=== PATIENT | female | born 1935 | race Caucasian/White ===

== ENCOUNTER 2017-10-08 16:54 | Inpatient (IN) | payer MEDICARE, MEDICAID ==
[~2017-10-08] VITALS: Ht 160 cm; Wt 59.4 kg
--- NOTE | 2017-10-08 17:07 | NUR ---
DR MILIAN AT BS FOR EVAL.
[2017-10-08] MEDS ORDERED: IV NS 0.9% 1,000 ML BAG IV ONE (17:30)
[2017-10-08] MEDS ORDERED: ONDANSETRON HCL/PF 4 MG/2 ML VIAL ONE (17:30)
[2017-10-08] MEDS ORDERED: ONDANSETRON HCL/PF 4 MG/2 ML VIAL IVP ONE (17:30)
[2017-10-08 17:36] LABS: BASOPHILS # (AUTO) 0.1 /CMM (0.0-0.2); BASOPHILS % (AUTO) 0.8 % (0.0-2.0); EOSINOPHILS % (AUTO) 0.5 % (0.0-6.0); HEMATOCRIT 39 % (33-45); HEMOGLOBIN 12.9 g/dL (11.5-14.8); LYMPHOCYTES # (AUTO) 1.2 /CMM (0.8-4.8); LYMPHOCYTES % (AUTO) 15.5 % (20.0-44.0); MEAN CORPUSCULAR HEMOGLOBIN 29 PG (26.0-33.0); MEAN CORPUSCULAR HGB CONC 33 g/dl (31.0-36.0); MEAN CORPUSCULAR VOLUME 87 fL (82-100); MONOCYTES # (AUTO) 0.4 /CMM (0.1-1.30); MONOCYTES % (AUTO) 5.5 % (2.0-12.0); NEUTROPHILS # (AUTO) 6.4 /CMM (1.8-8.9); NEUTROPHILS % (AUTO) 77.7 % (43.0-81.0); PLATELET COUNT (AUTO) 247 /CMM (150-450); RDW COEFFICIENT OF VARIATION 13.5 (11.5-15.0); RED BLOOD CELL COUNT(AUTO) 4.44 MIL/uL (4.0-5.2); WHITE BLOOD COUNT (AUTO) 8.1 K/uL (4.3-11.0)
[2017-10-08 17:47] LABS: CALCIUM, SERUM 9.9 mg/dL (8.5-10.1); CARBON DIOXIDE 22 mmol/L (21-32); CHLORIDE 103 mmol/L (98-107); CREATININE 2.2 mg/dL (0.6-1.3); GLUCOSE 148 mg/dL (74-106); POTASSIUM 4.1 mmol/L (3.5-5.1); SODIUM SERUM 140 mmol/L (136-145); UREA NITROGEN, BLOOD 39 mg/dL (7-18)
[2017-10-08 17:50] LABS: INR 0.89 (0.87-1.13)
[2017-10-08] MEDS ORDERED: IPRATROPIUM NEB FS 0.5 MG/2.5 ML AMPUL.NEB ONE (17:51)
[2017-10-08] MEDS ORDERED: ALBUTEROL FS 2.5 MG/0.5 ML VIAL.NEB ONE (17:51)
[2017-10-08 17:53] LABS: ALANINE AMINOTRANSFERASE 38 U/L (12-78); ALBUMIN 3.1 g/dL (3.4-5.0); ALKALINE PHOSPHATASE 88 U/L (46-116); ASPARTATE AMINOTRANSFERASE 26 U/L (15-37); BILIRUBIN,DIRECT 0.1 mg/dL (0.0-0.2); BILIRUBIN,TOTAL 0.4 mg/dL (0.2-1.0); TOTAL PROTEIN, SERUM 6.8 g/dL (6.4-8.2)
[2017-10-08 17:55] LABS: TROPONIN I 0.043 ng/mL (0.00-0.056)
[2017-10-08] MEDS ORDERED: IPRATROPIUM NEB FS 0.5 MG/2.5 ML AMPUL.NEB NEB ONE (18:00)
[2017-10-08] MEDS ORDERED: ALBUTEROL FS 2.5 MG/0.5 ML VIAL.NEB NEB ONE (18:00)
[2017-10-08] MEDS ORDERED: OSELTAMIVIR PHOSPHATE 75 MG CAPSULE PO ONE (19:30)
[2017-10-08] MEDS ORDERED: CEFTRIAXONE 1GM BAG (ER ONLY) 1 GM/50 ML PIGGYBACK IV ONE (19:30)
--- NOTE | 2017-10-08 19:30 | NUR ---
PATIENT IS ALERT AND RESPONSIVE. VSS. NAD NOTED. WILL CONTINUE TO MONITOR. FAMILIY AT BEDSIDE.
[2017-10-08] MEDS ORDERED: CEFTRIAXONE 1 G VIAL ONE (19:45)
[2017-10-08] MEDS ORDERED: OSELTAMIVIR PHOSPHATE 75 MG CAPSULE ONE (19:45)
[2017-10-08] MEDS ORDERED: LIOT25TA7 PO (20:38)
[2017-10-08] MEDS ORDERED: RIVA10TA PO (20:38)
[2017-10-08] MEDS ORDERED: AMIO100T4 PO (20:38)
[2017-10-08] MEDS ORDERED: AMLO1TAB12 PO (20:38)
[2017-10-08] MEDS ORDERED: ATOR40TA PO (20:38)
[2017-10-08] MEDS ORDERED: HYDR-4076 PO (20:38)
[2017-10-08] MEDS ORDERED: SITA100T PO (20:38)
[2017-10-08] MEDS ORDERED: DULO20CA PO (20:38)
[2017-10-08] MEDS ORDERED: CAPT25TA3 PO (20:38)
[2017-10-08] MEDS ORDERED: VIT1TABL76 PO (20:38)
--- NOTE | 2017-10-08 20:59 | NUR ---
[facility]
[2017-10-08] MEDS ORDERED: CEFTRIAXONE 1 G in IV D5W 50 ML IV SCH (21:00)
[2017-10-08] MEDS ORDERED: Z GUARD REMEDY 2 OZ OINT TP PRN (21:00)
[2017-10-08] MEDS ORDERED: ACETAMINOPHEN 325 MG TABLET PO PRN (21:00)
[2017-10-08] MEDS ORDERED: ZOLPIDEM TARTRATE 5 MG TABLET PO PRN (21:00)
[2017-10-08] MEDS ORDERED: MAG HYDROX/AL HYDROX/SIMETH 30 ML UDC PO PRN (21:00)
[2017-10-08] MEDS ORDERED: HYDROCODONE/APAP 5/325MG 1 EACH TABLET PO PRN (21:00)
[2017-10-08] MEDS ORDERED: MAGNESIUM HYDROXIDE 30 ML UDC PO PRN (21:00)
[2017-10-08] MEDS ORDERED: ONDANSETRON HCL/PF 4 MG/2 ML VIAL IVP PRN (21:00)
[2017-10-08] MEDS ORDERED: INSULIN REGULAR, HUMAN 100 UNIT/ML 3 ML VIAL SQ PRN (21:00)
[2017-10-08] MEDS ORDERED: *INSULIN REGULAR(HUMULIN R)HUM 100 UNIT/ML VIAL SQ PRN (21:00)
[2017-10-08] MEDS ORDERED: DEXTROSE 50%-WATER 50 ML DISP.SYRIN IV PRN (21:00)
--- NOTE | 2017-10-08 21:21 | NUR ---
REPORT GIVEN TO DEBBY ROSAS FOR ADMISSION AND PAUL.
[2017-10-08 21:45] VITALS: BP 157/70
--- NOTE | 2017-10-08 21:54 | NUR ---
TRANSFERRED PATIENT TO TELE BED 119-2 VIA ALS PROTOCOL, NO INCIDENT NOTED.
--- NOTE | 2017-10-08 22:00 | NUR ---
BLOCK TESTER INITIAL NOTE PT RECEIVED VIA GURNEY AND TRANSFERRED SAFELY TO BED. DAUGHTER AT BEDSIDE. BREATHING REGULAR AND UNLABORED. ON ROOM AIR AND SATURATING WELL. A/O X4 AND SURINAMESE SPEAKING. DAUGHTER TRANSLATING FOR PT. ASSESSMENTS PERFORMED. CALL LIGHT WITHIN REACH. WILL CONTINUE TO MONITOR.
[2017-10-09] VITALS: BP 141/65
[2017-10-09] MEDS: IV NS 0.9% 1,000 ML IV PRN (00:16)
[2017-10-09] MEDS ORDERED: ALBUTEROL FS 2.5 MG/3 ML VIAL.NEB ONE (00:23)
[2017-10-09] MEDS: ALBUTEROL FS 2.5 MG/3 ML VIAL.NEB NEB PRN ×2 (00:25→08:47)
[2017-10-09] MEDS: BLOOD SUGAR DIAGNOSTIC 1 EACH STRIP VI SCH ×5 (00:26→21:52)
[2017-10-09 01:00] VITALS: BP 141/65
[2017-10-09 04:00] VITALS: BP_SYST 112; BP_SYST 118; BP_DIAS 64; BP_DIAS 78
--- NOTE | 2017-10-09 07:20 | NUR ---
PHARMACY BILLING ADJUDICATOR OPENING NOTES RECEIVED PT FROM NIGHTSHIFT NURSE IN STABLE CONDITION. PT IS A/O X3. NO SOB OR SISNS OF DISTRESS NOTED. BREATHING IS EVEN AND UNLABORED. PT PRESENTS WITH A NON PRODUCTIVE COUGH. RESPIRATORY THERAPIST CALLED FOR PRN BREATHING TX. WILL ALERT MD FOR ANTI COUGH MEDICATION. IV NOTED TO BE PATENT AND INTACT. NO REDNESS OR SIGNS OF INFILTRATION NOTED. BED IN LOW LOCKED POSITION, SIDE RAILS UP X2, CALL LIGHT WITHIN REACH. WILL CONTINUE TO MONITOR
[2017-10-09 07:38] LABS: BASOPHILS % (AUTO) 0.4 % (0.0-2.0); EOSINOPHILS # (AUTO) 0.1 /CMM (0.0-0.7); EOSINOPHILS % (AUTO) 1.1 % (0.0-6.0); HEMATOCRIT 34 % (33-45); HEMOGLOBIN 11.5 g/dL (11.5-14.8); LYMPHOCYTES # (AUTO) 3.1 /CMM (0.8-4.8); LYMPHOCYTES % (AUTO) 37.4 % (20.0-44.0); MEAN CORPUSCULAR HEMOGLOBIN 30 PG (26.0-33.0); MEAN CORPUSCULAR HGB CONC 34 g/dl (31.0-36.0); MEAN CORPUSCULAR VOLUME 90 fL (82-100); MONOCYTES # (AUTO) 0.6 /CMM (0.1-1.30); MONOCYTES % (AUTO) 6.7 % (2.0-12.0); NEUTROPHILS # (AUTO) 4.5 /CMM (1.8-8.9); NEUTROPHILS % (AUTO) 54.4 % (43.0-81.0); PLATELET COUNT (AUTO) 235 /CMM (150-450); RDW COEFFICIENT OF VARIATION 14.1 (11.5-15.0); RED BLOOD CELL COUNT(AUTO) 3.79 MIL/uL (4.0-5.2); WHITE BLOOD COUNT (AUTO) 8.3 K/uL (4.3-11.0)
--- NOTE | 2017-10-09 07:48 | NUR ---
SENIOR SALES CONSULTANT CLOSING NOTE PT REMAINED STABLE DURING SHIFT. ALL NEEDS ATTENDED TO PROMPTLY. ASSISTED TO THE RESTROOM SAFELY. ON ROOM AIR. ALL SAFETY MEASURES IN PLACE. CALL LIGHT WITHIN REACH. WILL ENDORSE TO NEXT SHIFT FOR CONTINUITY OF CARE.
[2017-10-09 08:00] VITALS: BP 132/53
[2017-10-09] MEDS: VIT B CMPLX 3/FA/VIT C/BIOTIN 1 TAB TABLET PO SCH (08:38)
[2017-10-09] MEDS: PANTOPRAZOLE 40 MG TABLET.DR PO SCH (08:38)
[2017-10-09] MEDS: DOCUSATE SODIUM 100 MG CAPSULE PO SCH ×2 (08:38→17:00)
[2017-10-09] MEDS: AMIODARONE HCL 200 MG TABLET PO SCH ×2 (08:38→17:23)
[2017-10-09] MEDS: DULOXETINE HCL 30 MG CAPSULE.DR PO SCH ×2 (08:38→17:24)
[2017-10-09] MEDS: LIOTHYRONINE SODIUM (25 MCG) 25 MCG TABLET PO SCH (08:39)
[2017-10-09] MEDS ORDERED: DULOXETINE HCL 20 MG CAPSULE.DR PO SCH (09:00)
[2017-10-09 09:11] LABS: CALCIUM, SERUM 8.9 mg/dL (8.5-10.1); CARBON DIOXIDE 21 mmol/L (21-32); CHLORIDE 106 mmol/L (98-107); GLUCOSE 103 mg/dL (74-106); MAGNESIUM 1.5 mg/dL (1.8-2.4); PHOSPHORUS 3.6 mg/dL (2.5-4.9); POTASSIUM 3.2 mmol/L (3.5-5.1); SODIUM SERUM 143 mmol/L (136-145); UREA NITROGEN, BLOOD 34 mg/dL (7-18)
[2017-10-09] MEDS ORDERED: GUAIFENESIN/CODEINE 10 ML UDC PO PRN (13:30)
[2017-10-09] MEDS ORDERED: POTASSIUM CHLORIDE 20 MEQ TAB.PRT.SR PO ONE (14:00)
[2017-10-09] MEDS: Magnesium 1GM/D5W 100ML PREMIX 100 ML IV SCH ×2 (14:27→16:29)
[2017-10-09] MEDS: RIVAROXABAN 10 MG TABLET PO SCH (17:28)
[2017-10-09] MEDS: CEFTRIAXONE 1 G in IV D5W 50 ML IV SCH (17:30)
[2017-10-09] MEDS: ATORVASTATIN 40 MG TABLET PO SCH (17:30)
[2017-10-09 20:00] VITALS: BP 140/60
[2017-10-09 21:00] VITALS: BP 140/60
--- NOTE | 2017-10-09 22:49 | NUR ---
MS RN CLOSING NOTES PT REMAINS STABLE. ALL NEEDS MET DURING SHIFT AND ORDERS CARRIED OUT ACCORDINGLY. NO COUCH AT THIS TIME. VITALS REMAIN STABLE. SAFETY MEASURES REMAIN IN PLACE. WILL ENDORSE TO NIGHTSHIFT NURSE FOR PAUL
--- NOTE | 2017-10-09 22:55 | NUR ---
MS RN NOTE RECEIVED REPORT FOR PT FOR CONTINUITY OF CARE. WILL CONTINUE TO MONITOR.
[2017-10-10 04:00] VITALS: BP 134/52
[2017-10-10] MEDS: IV NS 0.9% 1,000 ML IV PRN (04:35)
[2017-10-10 06:13] VITALS: BP 134/52
[2017-10-10 06:51] LABS: BASOPHILS % (AUTO) 0.7 % (0.0-2.0); EOSINOPHILS # (AUTO) 0.2 /CMM (0.0-0.7); EOSINOPHILS % (AUTO) 2.7 % (0.0-6.0); HEMATOCRIT 31 % (33-45); HEMOGLOBIN 10.2 g/dL (11.5-14.8); LYMPHOCYTES # (AUTO) 1.9 /CMM (0.8-4.8); LYMPHOCYTES % (AUTO) 31.7 % (20.0-44.0); MEAN CORPUSCULAR HEMOGLOBIN 30 PG (26.0-33.0); MEAN CORPUSCULAR HGB CONC 33 g/dl (31.0-36.0); MEAN CORPUSCULAR VOLUME 91 fL (82-100); MONOCYTES # (AUTO) 0.5 /CMM (0.1-1.30); MONOCYTES % (AUTO) 7.7 % (2.0-12.0); NEUTROPHILS # (AUTO) 3.4 /CMM (1.8-8.9); NEUTROPHILS % (AUTO) 57.2 % (43.0-81.0); PLATELET COUNT (AUTO) 216 /CMM (150-450); RDW COEFFICIENT OF VARIATION 14.4 (11.5-15.0); RED BLOOD CELL COUNT(AUTO) 3.38 MIL/uL (4.0-5.2)
[2017-10-10 07:39] LABS: CALCIUM, SERUM 8.7 mg/dL (8.5-10.1); CARBON DIOXIDE 24 mmol/L (21-32); CHLORIDE 110 mmol/L (98-107); CREATININE 1.4 mg/dL (0.6-1.3); GLUCOSE 88 mg/dL (74-106); SODIUM SERUM 144 mmol/L (136-145); UREA NITROGEN, BLOOD 29 mg/dL (7-18)
[2017-10-10 08:00] VITALS: BP 129/69
--- NOTE | 2017-10-10 08:00 | NUR ---
AM RN NOTE Received patient awake, A/O X4 verbally responsive. Denies any pain or discomfort at this time. IV site intact and patent. Will continue to monitor.
--- NOTE | 2017-10-10 08:02 | NUR ---
MS RN CLOSING NOTE NO ACUTE DISTRESS NOTED. ALL NEEDS ATTENDED TO PROMPTLY. CALL LIGHT WITHIN REACH. WILL ENDORSE TO NEXT SHIFT FOR CONTINUITY OF CARE.
[2017-10-10] MEDS: DOCUSATE SODIUM 100 MG CAPSULE PO SCH ×2 (08:09→17:06)
[2017-10-10] MEDS: PANTOPRAZOLE 40 MG TABLET.DR PO SCH (08:09)
[2017-10-10] MEDS: VIT B CMPLX 3/FA/VIT C/BIOTIN 1 TAB TABLET PO SCH (08:09)
[2017-10-10] MEDS: LIOTHYRONINE SODIUM (25 MCG) 25 MCG TABLET PO SCH (08:09)
[2017-10-10] MEDS: AMIODARONE HCL 200 MG TABLET PO SCH ×2 (08:09→17:06)
[2017-10-10] MEDS: DULOXETINE HCL 30 MG CAPSULE.DR PO SCH ×2 (08:10→17:07)
[2017-10-10] MEDS: BLOOD SUGAR DIAGNOSTIC 1 EACH STRIP VI SCH ×4 (08:10→22:00)
[2017-10-10 16:00] VITALS: BP 145/70
[2017-10-10] MEDS: ATORVASTATIN 40 MG TABLET PO SCH (17:06)
[2017-10-10] MEDS: RIVAROXABAN 10 MG TABLET PO SCH (17:13)
--- NOTE | 2017-10-10 17:45 | NUR ---
AM RN NOTE Patient IV site noted infiltrate, elevated with pillows and warm compress applied. Re-inserted new site on RFA #22 X1 attempt.
[2017-10-10] MEDS: CEFTRIAXONE 1 G in IV D5W 50 ML IV SCH (17:50)
--- NOTE | 2017-10-10 18:25 | NUR ---
AM RN NOTE Patient awake, resting at this time, no acute distress noted. IV site intact. Will continue to monitor and endorse care to next shift.
--- NOTE | 2017-10-10 19:40 | NUR ---
RN NOTE; RECEIVED PT IN BED AWAKE AND ALERT. BREATHING EVENLY. NO SOB. NAD. SKIN WARM AND DRY. NO C/O PAIN OR DISCOMFORT. ON ONGOING IVF HYDRATION ARIANE WELL. IV SITE INTACT AND PATENT, NEEDS ATTENDED .ASSISTED W/ ADLS. CALL LIGHT WITHIN REACH. WILL CONT TO MONITOR.
[2017-10-10 20:00] VITALS: BP 148/60
--- NOTE | 2017-10-10 22:03 | NUR ---
PT REFUSED BLOOD SUGAR CHECK. STATED SHE ONLY CHECKS HER BLOOD SUGAR WHEN SHE WANTS TO EAT. ACHS FSBS CHECK WERE EXPLAINED TO THE PT , AND RISKS VS BENEFITS WERE REVIEWED W/ THE PTX3 WITH NO SUCCESS. NO S/S OF HYPO OR HYPERGLYCEMIA NOTED AT THIS TIME. WILL CONT TO MONITOR,
--- NOTE | 2017-10-11 06:34 | NUR ---
RN NOTE, PT IN BED RESTING COMFORTABLY. NO ACUTE EVENT DURING THE NIGHT, AFEBRILE. W/ NO C/O PAIN OR DISCOMFORT. ON ONGOING IVF HYDRATION. NEEDS ATTENDED .CALL LIGHT WITHIN REACH. WILL CONT TO MONITOR AND WILL ENDORSE TO AM SHIFT FOR PAUL.
[2017-10-11] MEDS: BLOOD SUGAR DIAGNOSTIC 1 EACH STRIP VI SCH (06:47)
[2017-10-11 06:59] LABS: BASOPHILS % (AUTO) 0.4 % (0.0-2.0); EOSINOPHILS # (AUTO) 0.2 /CMM (0.0-0.7); EOSINOPHILS % (AUTO) 2.7 % (0.0-6.0); HEMATOCRIT 32 % (33-45); HEMOGLOBIN 10.7 g/dL (11.5-14.8); LYMPHOCYTES # (AUTO) 2.1 /CMM (0.8-4.8); LYMPHOCYTES % (AUTO) 30.2 % (20.0-44.0); MEAN CORPUSCULAR HEMOGLOBIN 30 PG (26.0-33.0); MEAN CORPUSCULAR HGB CONC 34 g/dl (31.0-36.0); MEAN CORPUSCULAR VOLUME 90 fL (82-100); MONOCYTES # (AUTO) 0.4 /CMM (0.1-1.30); MONOCYTES % (AUTO) 5.5 % (2.0-12.0); NEUTROPHILS # (AUTO) 4.2 /CMM (1.8-8.9); NEUTROPHILS % (AUTO) 61.2 % (43.0-81.0); PLATELET COUNT (AUTO) 263 /CMM (150-450); RDW COEFFICIENT OF VARIATION 14.2 (11.5-15.0); RED BLOOD CELL COUNT(AUTO) 3.55 MIL/uL (4.0-5.2); WHITE BLOOD COUNT (AUTO) 6.9 K/uL (4.3-11.0)
[2017-10-11 07:23] LABS: CALCIUM, SERUM 8.9 mg/dL (8.5-10.1); CARBON DIOXIDE 25 mmol/L (21-32); CHLORIDE 107 mmol/L (98-107); CREATININE 1.3 mg/dL (0.6-1.3); GLUCOSE 88 mg/dL (74-106); POTASSIUM 3.6 mmol/L (3.5-5.1); SODIUM SERUM 138 mmol/L (136-145); UREA NITROGEN, BLOOD 21 mg/dL (7-18)
--- NOTE | 2017-10-11 07:30 | NUR ---
RN MS NOTES PT IN BED, RESTING COMFORTABLY, NO SIGN OF PAIN OR ANY DISCOMFORT, BREATHING PATTERN NORMAL AND NON LABORED, CALL LIGHT WITHIN REACH.
[2017-10-11 08:00] VITALS: BP 144/77
[2017-10-11] MEDS: DULOXETINE HCL 30 MG CAPSULE.DR PO SCH (09:53)
[2017-10-11] MEDS: DOCUSATE SODIUM 100 MG CAPSULE PO SCH (09:53)
[2017-10-11] MEDS: VIT B CMPLX 3/FA/VIT C/BIOTIN 1 TAB TABLET PO SCH (09:53)
[2017-10-11] MEDS: PANTOPRAZOLE 40 MG TABLET.DR PO SCH (09:54)
[2017-10-11] MEDS: AMIODARONE HCL 200 MG TABLET PO SCH (09:54)
[2017-10-11] MEDS: LIOTHYRONINE SODIUM (25 MCG) 25 MCG TABLET PO SCH (09:55)
[2017-10-11 12:00] VITALS: BP 141/75
--- NOTE | 2017-10-11 12:30 | NUR ---
RN MS NOTES PT IN BED, AWAKE, ALERT AND ORIENTED, DENIES PAIN, NOT IN DISTRESS, ABLE TO AMBULATE TO THE BATHROOM WITH STEADY GAIT, SEEN BY DR. PANIAGUA, DISCHARGE ORDER GIVEN, DISCHARGE AND MEDICATION INSTRUCTIONS PROVIDED TO PT AND GRANDSON OLGA LIDIA, VERBALIZED UNDERSTANDING, BELONGINGS ACCOUNTED FOR, OFFERED WHEELCHAIR BUT PER GRANDSON, PT SAID SHE WOULD RATHER WALK, LEFT WITH GRANDSON IN STABLE CONDITION.
== END 2017-10-11 12:28 | disposition home or self-care (01) | DRG 193 ==
LOC: ER 16:55 → TELE1 21:44 → MEDSG1 10-09 11:51
PROVIDERS: ADMIT Internal Medicine; ATTEND Internal Medicine
DX: J15.9 Unspecified bacterial pneumonia (principal); N17.0 Acute kidney failure with tubular necrosis; J96.01 Acute respiratory failure with hypoxia; E43 Unspecified severe protein-calorie malnutrition; G92 Toxic encephalopathy; E87.2 Acidosis; I48.91 Unspecified atrial fibrillation; E11.22 Type 2 diabetes mellitus with diabetic chronic kidney disease; E88.09 Other disorders of plasma-protein metabolism, not elsewhere classified; Z79.01 Long term (current) use of anticoagulants; Z79.84 Long term (current) use of oral hypoglycemic drugs; Z79.899 Other long term (current) drug therapy; Z85.828 Personal history of other malignant neoplasm of skin; N18.9 Chronic kidney disease, unspecified; E03.9 Hypothyroidism, unspecified; E78.5 Hyperlipidemia, unspecified; E83.42 Hypomagnesemia; F32.9 Major depressive disorder, single episode, unspecified; F41.9 Anxiety disorder, unspecified; I12.9 Hypertensive chronic kidney disease with stage 1 through stage 4 chronic kidney disease, or unspecified chronic kidney disease; M19.90 Unspecified osteoarthritis, unspecified site; Z68.23 Body mass index [BMI] 23.0-23.9, adult
CPT/HCPCS: 36415; 71045-TC; 80048-TC; 80076-TC; 82962-TC; 83605-TC; 83735-TC; 84100-TC; 84484-TC; 85025-TC; 85730-TC; 87040-TC; 87400; 94762-TC; A4606; J0696; J1815; J2405; J3475; J7030; J7060; Z7610